=== PATIENT | female | born 1950 | race Caucasian/White ===

== ENCOUNTER 2019-02-05 00:15 | Inpatient (IN) | payer OTHER, MEDICAID ==
[~2019-02-05] VITALS: Ht 165.1 cm; Wt 120.2 kg
[2019-02-05 00:15] VITALS: BP 151/51
[~2019-02-05 00:15] MED LIST: ACET-787 PO; ALBU-136 IH; ASPI81CT33 PO; FENO160T7 PO; FLUT1DSK2 IH; FURO-572 PO; GLIP10TA12 PO; SIMV10TA1 PO
--- NOTE | 2019-02-05 00:45 | NUR ---
BIBA C/O ABD PAIN X2 WEEKS. 10/10 SHARP PAIN DOES NOT RADIATE. DENIES N/V/D. DENIES FEVER/COUGH. PT IS LEGALLY BLIND. PT HAS FRACTURE TO RT FOOT S/P FALL SHE WAS SEEN FOR. RR EVEN UNLABORED. ABD SOFT ROUND NONTENDER. VSS. PT CALM RESTING IN BED. NO FURTHER COMPLAINTS AT THIS TIME. MEDHX: DM, RENAL FAILURE, PACEMAKER ALLERGIES: DENIES
[2019-02-05 00:53] LABS: HEMATOCRIT 27.3 % (36-48); HEMOGLOBIN 9.1 g/dL (12.0-16.0); MEAN CORPUSCULAR HEMOGLOBIN 32 pg (27-31); MEAN CORPUSCULAR HGB CONC 33 g/dL (33-37); MEAN CORPUSCULAR VOLUME 95.9 fL (80-94); PLATELET COUNT (AUTO) 326 K/uL (140-450); RED BLOOD CELL COUNT(AUTO) 2.85 MIL/uL (4.20-5.40); RED CELL DISTRIBUTION WIDTH 13.6 % (11.6-13.7)
[2019-02-05 01:06] LABS: ALBUMIN 2.6 g/dL (3.4-5.0); ANION GAP 12.9 (8-16); CARBON DIOXIDE 33.1 mmol/L (21-32); TOTAL BILIRUBIN 0.6 mg/dL (0.0-1.0)
[2019-02-05 01:10] LABS: WHITE BLOOD COUNT (AUTO) 22.1 K/uL (4.8-10.8)
[2019-02-05 01:11] LABS: EOSINOPHILS % (MANUAL) 1 % (0-4); LYMPHOCYTES % (MANUAL) 13 % (20-46); MONOCYTES % (MANUAL) 0 % (5-12)
[2019-02-05 01:14] LABS: CREATININE 6.1 mg/dL (0.6-1.3)
--- NOTE | 2019-02-05 01:30 | NUR ---
PT RESTING IN BED WITH EYES CLOSED. VSS AT THIS TIME.
[2019-02-05] MEDS ORDERED: MORPHINE SULFATE 4 MG/ML SYR IVP ONE ×2 (01:45→03:30)
--- NOTE | 2019-02-05 02:20 | NUR ---
PT IN BED, STATES PAIN WAS RELIEVED AFTER PAIN MEDICATIONS GIVEN. PT RESTING WITH EYES CLOSED. VSS AT THIS TIME.
--- NOTE | 2019-02-05 02:35 | NUR ---
RECEIVED REPORT FROM MARYCARMEN CALLES. TRANSFER OF CARE AT THIS TIME.
--- NOTE | 2019-02-05 02:48 | NUR ---
PT TAKEN TO CT VIA [facility].
--- NOTE | 2019-02-05 03:00 | NUR ---
PT RETURNED FROM CT VIA [facility].
--- NOTE | 2019-02-05 03:15 | NUR ---
PT IS GROANING, GRIMACING IN BED C/O ABD PAIN. DR MCKEON MADE AWARE.
--- NOTE | 2019-02-05 04:40 | NUR ---
PT RESTING COMFORTABLY IN BED WITH VSS. PT REPORTS NO PAIN AT THIS TIME. SKIN PINK, WARM, DRY. BREATHING EVEN, UNLABORED.
--- NOTE | 2019-02-05 06:00 | NUR ---
PT HAD LARGE LOOSE BROWN BM. PERINEAL CARE AND HYGIENE PROVIDED.
--- NOTE | 2019-02-05 06:10 | NUR ---
# 16 FR straight catheter utilizing sterile technique. Immediate return of 150 ml dark yellow, turbid, foul smelling urine noted. Urine sample collected and sent to lab. Pt tolerated procedure well.
[2019-02-05] MEDS ORDERED: cefTRIAXone 1,000 MG VIAL ONE (06:16)
[2019-02-05 06:48] LABS: APPEARANCE,URINE CLOUDY (CLEAR); BLOOD, URINE 3+ (NEGATIVE); COLOR,URINE YELLOW (YELLOW); UGLUCOSE NEGATIVE (NEGATIVE)
[2019-02-05 06:49] LABS: BILIRUBIN,URINE NEGATIVE (NEGATIVE); LEUKOCYTE ESTERASE ,URINE 3+ (NEGATIVE); NITRITE, URINE POSITIVE (NEGATIVE)
[2019-02-05 06:50] LABS: RBC,URINE 11-20 (MOD) /HPF (0-5); WBC,URINE >25 (MANY) /HPF (0-5)
--- NOTE | 2019-02-05 07:02 | NUR ---
PT RESTING COMFORTABLY IN BED WITH VSS. PT REPORTS NO PAIN AT THIS TIME. SKIN PINK, WARM, DRY. BREATHING EVEN, UNLABORED.
--- NOTE | 2019-02-05 07:15 | NUR ---
ASSUMED CARE OF PT FROM MARYCARMEN SIBLEY.
--- NOTE | 2019-02-05 07:15 | NUR ---
REPORT GIVEN TO MARYCARMEN SALDANA. TRANSFER OF CARE AT THIS TIME.
--- NOTE | 2019-02-05 07:20 | NUR ---
Patient will be admitted to care of DR MORALES. Admited to MED/SURG. Will go to room 108. Belongings list completed. Report to MARYCARMEN FAGAN.
--- NOTE | 2019-02-05 07:30 | NUR ---
RECEIVED REPORT FROM EMERGENCY ROOM NURSE FOR CONTINUITY OF CARE. PT IN STABLE CONDITION. RESPIRATIONS EVEN AND UNLABORED. IV INTACT AND PATENT. SAFETY MEASURES IN PLACE. BED IN LOW POSITION. CALL LIGHT AT BEDSIDE. WILL CONTINUE TO MONITOR.
[2019-02-05 08:00] VITALS: BP 150/44
--- NOTE | 2019-02-05 08:28 | NUR ---
REPOSITIONED AND CHANGED PT AFTER BOWEL MOVEMENT. PT IN STABLE CONDITION. BED IN LOW POSITION. BED ALARM ON. CALL LIGHT AT BEDSIDE.
--- NOTE | 2019-02-05 08:30 | NUR ---
PATIENT HAS BEEN SCREENED AND CATEGORIZED HIGH NUTRITION RISK. PATIENT WILL BE SEEN WITHIN 1-2 DAYS OF ADMISSION. 02/05/19-02/06/[address]
[2019-02-05] MEDS ORDERED: ALBUTEROL 0.083% 2.5 MG/3 ML NEBU INH PRN (09:00)
[2019-02-05] MEDS ORDERED: ONDANSETRON 4 MG/2 ML VIAL IVP PRN (09:00)
[2019-02-05] MEDS ORDERED: LORazepam 2 MG/ML VIAL IVP PRN (09:00)
[2019-02-05] MEDS ORDERED: ACETAMINOPHEN 325 MG TAB PO PRN (09:00)
[2019-02-05] MEDS ORDERED: HYDROcodone/APAP 5/325 MG 1 TAB TAB PO PRN (09:00)
[2019-02-05] MEDS ORDERED: NON-FORMULARY ITEM (Fluticasone/Salmeterol* (Advair 250-50 Diskus*) 1 DSK) IH SCH (09:00)
[2019-02-05] MEDS ORDERED: ECOTRIN 81 MG TABEC PO SCH (09:00)
[2019-02-05] MEDS: FENOFIBRATE 48 MG TAB PO SCH (10:28)
[2019-02-05] MEDS: HYDROcodone/APAP 10/325 MG 1 TAB TAB PO SCH (10:29)
[2019-02-05] MEDS: glipiZIDE 10 MG TAB PO SCH ×2 (10:29→21:31)
[2019-02-05] MEDS: NACL 0.9% 1,000 ML IV SCH ×2 (10:37→18:58)
--- NOTE | 2019-02-05 10:57 | NUR ---
ULTRASOUND AT BEDSIDE AT THIS TIME. PT IN STABLE CONDITION.
--- NOTE | 2019-02-05 12:13 | NUR ---
PT LYING IN BED SLEEP AT THIS TIME. BED IN LOW POSITION. CALL LIGHT AT BEDSIDE. BED ALARM ON. WILL CONTINUE TO MONITOR.
--- NOTE | 2019-02-05 14:25 | NUR ---
PT LYING IN BED FAMILY AT BEDSIDE. BED IN LOW POSITION. CALL LIGHT AT BEDSIDE. BED ALARM ON. WILL CONTINUE TO MONITOR. Addendum: 02/05/19 at 2024 by Candida Cantrell RN BARBER (SON)
--- NOTE | 2019-02-05 16:30 | NUR ---
ANGELIKA ADEN WOUND ASSESSMENT, INFORMED DR. ANDREW CHERY WOUND CARE NURSE SUGGEST PODIATRY FOR RIGHT 2ND TOE, DR. MORALES VERBALIZED UNDERSTANDING. INFORMED DR. MORALES PT HAS DIALYSIS ON SUN, SUN, SUN, DR. MORALES VERBALIZED CALL NEPHRO.
--- NOTE | 2019-02-05 16:52 | NUR ---
CALLED EMILIANO MARSHALL FOR DIALYSIS ORDER. EXPLAINED PT NEEDS DIALYSIS TODAY AND TO CALL KETAN AND HAVE KETAN CALL DR. CARTER FOR VERBAL ORDERS. SPOKE TO KETAN WHO VERBALIZED UNDERSTANDING OF PT NEED FOR DIALYSIS.
--- NOTE | 2019-02-05 17:13 | NUR ---
PER PRIMARY RN REQUEST TO CHECK PT. RLE. PLR WITH ORTHO CAST IN PLACE, 2ND DIGIT TOE WITH BLACK ESCHAR. RECOMMEND RN TO REQUEST TELEPHONE ORDER CLERK TO FOLLOW UP.
[2019-02-05] MEDS ORDERED: DEXTROSE 50% 50 ML SYR IVP ONE (17:23)
--- NOTE | 2019-02-05 17:30 | NUR ---
ANGELIKA ADEN DEXTROSE 50PFS ONCE, SLIDING SCALE. BLOOD SUGAR MONITORING.
--- NOTE | 2019-02-05 17:45 | NUR ---
BLOOD SUGAR 113. PT IN STABLE CONDITION.
[2019-02-05 18:00] VITALS: BP 149/64
[2019-02-05] MEDS ORDERED: DEXTROSE 50% 50 ML SYR IVP SCH (18:00)
--- NOTE | 2019-02-05 19:10 | NUR ---
GAVE REPORT TO HEAT TREAT INSPECTOR NURSE FOR CONTINUITY OF CARE. PT IN STABLE CONDITION.
--- NOTE | 2019-02-05 19:11 | NUR ---
RECD. RESTING IN BED, EATING HER DINNER. ALERT/OX4. LEGALLY BLIND. RESPIRATION EVEN AND UNLABORED. 0N 02 AT 2 LITERS VIA N/C. IV OF NS AT 100 ML/HR INFUSING LEFT HAND G24. AV SHUNT AT THE RIGHT UPPER ARM. WITH BRUIT AND THRILL. RIGHT FOOT WITH CAST, NOTED DIABETIC ULCER AT THE MIDDLE TOE AND SMALLEST TOE, OPEN TO AIR, DRY AND INTACT. WITH + MOVEMENTS, CAPILLARY REFILL LESS THREE SECONDS, + SENSATION. AWARE OF PLAN DIALYSIS TONIGHT. PLAN OF CARE FOR THE SHIFT DISCUSSED. VERBALIZED UNDERSTANDING. DENIES PAIN 0/10.
--- NOTE | 2019-02-05 19:12 | NUR ---
Patient's Plan of Care was discussed and reviewed with SLOTTER OPERATOR HELPER: TANNER. SAFTEY MEASURES ARE IN PLACE. WILL CONTINUE TO MONITOR.
[2019-02-05] MEDS ORDERED: INSULIN LISPRO SLIDING SCALE 100 UNITS/ML VIAL SUBQ PRN (19:40)
--- NOTE | 2019-02-05 20:00 | NUR ---
DIALYSIS ON GOING. DIALYSIS NURSE ACEVES AT THE BEDSIDE.
[2019-02-05] MEDS ORDERED: FUROSEMIDE 20 MG TAB PO SCH (21:00)
--- NOTE | 2019-02-05 21:00 | NUR ---
MAY OF NUCLEAR MED CALLED, MAKE PATIENT NPO PAST MIDNIGHT, NO OPIOIDS AFTER 5:00 AM. HIDA SCAN WILL BE DONE 0900 TOMORROW.
[2019-02-05] MEDS: SIMVASTATIN 10 MG TAB PO SCH (21:31)
[2019-02-05] MEDS: LACTULOSE 20 GM/30 ML UDC PO SCH (21:31)
[2019-02-05] MEDS: BLOOD GLUCOSE MONITORING 1 DEV DEV FS SCH (21:37)
--- NOTE | 2019-02-05 21:37 | NUR ---
DUE PO MEDICATIONS GIVEN.
--- NOTE | 2019-02-05 23:00 | NUR ---
DIALYSIS FINISHED, PER DIALYSIS NURSE ACEVES, 2 LITERS OF FLUIDS TAKEN OUT.
[2019-02-06 02:46] VITALS: BP 151/41
--- NOTE | 2019-02-06 03:00 | NUR ---
IV INFILTRATED, WILL INSERT NEW IV LINE.
--- NOTE | 2019-02-06 03:30 | NUR ---
ARMAND RN STARTED TO PUT NEW IV LINE, UNABLE TO INSERT, PATIENT IS HARDSTICK.
--- NOTE | 2019-02-06 04:00 | NUR ---
GEORGINA CONROY TRIED TO PUT IV LINE, BUT PATIENT'S VEINS ARE VERY SMALL, BLOWS UP.
[2019-02-06] MEDS: NACL 0.9% 1,000 ML IV SCH (04:58)
[2019-02-06] MEDS: PIPERACILLIN/TAZOBACTAM 2.25 GM in DEXTROSE 5% 50 ML IV SCH ×3 (05:00→21:20)
--- NOTE | 2019-02-06 05:00 | NUR ---
PAGED DR. MORALES TO INFORM NEW IV ATTEMPTED SEVERAL TIMES BUT PATIENT IS HARDSTICK AND ANTIBIOTIC FOR THE MORNING CANNOT BE GIVEN.
--- NOTE | 2019-02-06 06:00 | NUR ---
DR. MORALES ORDERED PICC LINE INSERTION. INFORMED CHARGE HISTOTECHNOLOGIST,
[2019-02-06] MEDS: BLOOD GLUCOSE MONITORING 1 DEV DEV FS SCH ×4 (06:35→21:26)
--- NOTE | 2019-02-06 07:20 | NUR ---
ENDORSED TO AM SHIFT NURSE FOR CONTINUITY OF CARE.
--- NOTE | 2019-02-06 07:21 | NUR ---
RECEIVED REPORT FROM BROADCAST FIELD SUPERVISOR NURSE. PT WAS LYING IN BED AND RESPONSIVE TO VERBAL STIMULI. PT REPOSITIONED CALL LIGHT WITHIN REACH.
[2019-02-06 08:00] VITALS: BP 156/47
[2019-02-06 08:20] LABS: BASOPHILS % (AUTO) 0.2 % (0.0-2.0); EOSINOPHILS # (AUTO) 0.5 K/uL (0-0.4); HEMATOCRIT 26.9 % (36-48); HEMOGLOBIN 8.7 g/dL (12.0-16.0); LYMPHOCYTES % (AUTO) 5.5 % (20.5-51.1); MEAN CORPUSCULAR HEMOGLOBIN 31 pg (27-31); MEAN CORPUSCULAR HGB CONC 32 g/dL (33-37); MEAN CORPUSCULAR VOLUME 96.1 fL (80-94); MONOCYTES % (AUTO) 5.4 % (1.7-9.3); NEUTROPHILS # (AUTO) 15.6 K/uL (1.8-7.7); NEUTROPHILS % (AUTO) 85.9 % (42.2-75.2); PLATELET COUNT (AUTO) 323 K/uL (140-450); RED CELL DISTRIBUTION WIDTH 13.8 % (11.6-13.7); WHITE BLOOD COUNT (AUTO) 18.1 K/uL (4.8-10.8)
[2019-02-06 08:48] LABS: ANION GAP 12.9 (8-16); CARBON DIOXIDE 31.6 mmol/L (21-32); POTASSIUM 3.5 mmol/L (3.5-5.1)
[2019-02-06 08:52] LABS: CREATININE 4.8 mg/dL (0.6-1.3)
[2019-02-06 09:09] LABS: MAGNESIUM 2.3 mg/dL (1.8-2.4); PHOSPHORUS 2.2 mg/dL (2.5-4.9)
--- NOTE | 2019-02-06 10:00 | NUR ---
Pt left via hospital bed for NM hida scan, accompanied by NM nurse. Pt shows no signs of distress.
[2019-02-06] MEDS: MORPHINE SULFATE 2 MG/ML SYR IVP PRN ×2 (11:07→21:19)
--- NOTE | 2019-02-06 11:20 | NUR ---
Pt's DPOA & son Andrez came in to see pt. Informed him that pt is still in NM Hida scan & will take at least 30min-1hr to complete. Copy of pt's living will & General power of corporate associate attorney place in chart. Dr. Norwood called on the phone & spoke with Andrez, confirmed DNR code status. Order noted & carried out.
--- NOTE | 2019-02-06 11:24 | NUR ---
Morphine administered IVP for hida scan f/u. Pt also with c/o 7/10 back pain, but agree to complete hida scan.
[2019-02-06] MEDS: HYDROcodone/APAP 10/325 MG 1 TAB TAB PO SCH (12:17)
[2019-02-06] MEDS: LACTULOSE 20 GM/30 ML UDC PO SCH ×2 (12:17→21:20)
[2019-02-06] MEDS: SENNA 8.6 MG TAB PO SCH ×3 (12:18→16:51)
[2019-02-06] MEDS: glipiZIDE 10 MG TAB PO SCH ×2 (12:18→21:20)
[2019-02-06] MEDS: FENOFIBRATE 48 MG TAB PO SCH (12:18)
--- NOTE | 2019-02-06 12:50 | NUR ---
Pt came back from [place], no signs of distress. Left forearm IV intact & patent. Bed alarm on, Call light within reach. Son not at bedside.
--- NOTE | 2019-02-06 14:06 | NUR ---
PT CAME BACK FROM HIDA SCAN. PT WAS OFFERED LUNCH. DID NOT WANT TO EAT. NO COMPAINTS OF PAIN OR DISTRESS NOTED. REPOSITIONED PT RIGHT SIDE. COMFORT MEASURES IN PLACE. CALL LIGHT WITHIN REACH.
--- NOTE | 2019-02-06 15:22 | NUR ---
02/06/19 RD INITIAL ASSESSMENT COMPLETED PLEASE REFER TO NUTRITION ASSESSMENT UNDER CARE ACTIVITY FOR ESTIMATED NUTRITIONAL NEEDS. 1. CONTINUE CARDIAC AND CCHO 60 GM DIET TOLERATED 2. PROVIDE HEALTH SHAKE BID 3. RD TO FOLLOW-UP 3-5 DAYS, MODERATE RISK LOU OJEDA, RD
[2019-02-06 16:00] VITALS: BP 139/49
--- NOTE | 2019-02-06 16:33 | NUR ---
Fingerstick glucose = 62. Pt aaox3, able to follow commands, able to swallow independently. 2 packs of 120ml apple juice given po. Will recheck glucose.
[2019-02-06] MEDS: DEXTROSE 50% 50 ML SYR IVP PRN (17:40)
--- NOTE | 2019-02-06 17:46 | NUR ---
Pt's blood glucose level was 58. Dextrose 50% given IV. Will recheck in 30 mins. Pt is comfortable and resting. Responds to verbal stimuli. No diaphoresis or tremors noted.
--- NOTE | 2019-02-06 18:34 | NUR ---
Re-assessed pt blood glucose level to 136. Pt is comfortable and lying in bed.
--- NOTE | 2019-02-06 19:35 | NUR ---
Report given to pm nurse. Pt resting in bed, no signs of distress. Bed alarm on. Call light within reach.
[2019-02-06] MEDS: SIMVASTATIN 10 MG TAB PO SCH (21:20)
--- NOTE | 2019-02-06 22:48 | NUR ---
PATIENT BLOODSUGAR UP TO 72 WAS 62 WAS CHECKED [id number] BLOODSUGAR UP TO 74
[2019-02-07] MEDS: PIPERACILLIN/TAZOBACTAM 2.25 GM in DEXTROSE 5% 50 ML IV SCH ×3 (05:16→20:19)
[2019-02-07 05:29] VITALS: BP 124/38
--- NOTE | 2019-02-07 06:30 | NUR ---
BLOODSUGAR THIS A.M 37 GIVEN D50 REPEAT BLOODSUGAR IN 30MIN RESULTS 110
[2019-02-07] MEDS: BLOOD GLUCOSE MONITORING 1 DEV DEV FS SCH ×4 (06:39→21:41)
[2019-02-07] MEDS: ALBUTEROL 0.083% 2.5 MG/3 ML NEBU INH SCH ×3 (06:57→19:43)
[2019-02-07] MEDS: BUDESONIDE 0.5 MG/2 ML NEBU INH SCH ×2 (06:57→19:43)
--- NOTE | 2019-02-07 07:54 | NUR ---
Received report from night patrol inspector nurse. Pt is lying in bed. No signs of distress noted. No complains of pain. Call light within reach.
[2019-02-07 08:03] LABS: BASOPHILS # (AUTO) 0.1 K/uL (0.00-0.22); BASOPHILS % (AUTO) 0.7 % (0.0-2.0); EOSINOPHILS # (AUTO) 0.9 K/uL (0-0.4); EOSINOPHILS % (AUTO) 4.9 % (0.0-4.0); HEMATOCRIT 25.1 % (36-48); HEMOGLOBIN 8.3 g/dL (12.0-16.0); LYMPHOCYTES # (AUTO) 1.1 K/uL (2.5-16.5); LYMPHOCYTES % (AUTO) 5.8 % (20.5-51.1); MEAN CORPUSCULAR HEMOGLOBIN 32 pg (27-31); MEAN CORPUSCULAR HGB CONC 33 g/dL (33-37); MEAN CORPUSCULAR VOLUME 97.9 fL (80-94); MONOCYTES # (AUTO) 1.1 K/uL (0.8-1.0); MONOCYTES % (AUTO) 6.3 % (1.7-9.3); NEUTROPHILS # (AUTO) 14.8 K/uL (1.8-7.7); NEUTROPHILS % (AUTO) 82.3 % (42.2-75.2); PLATELET COUNT (AUTO) 307 K/uL (140-450); RED BLOOD CELL COUNT(AUTO) 2.56 MIL/uL (4.20-5.40); RED CELL DISTRIBUTION WIDTH 13.5 % (11.6-13.7)
[2019-02-07] MEDS: HYDROcodone/APAP 10/325 MG 1 TAB TAB PO SCH (09:00)
[2019-02-07] MEDS: LACTULOSE 20 GM/30 ML UDC PO SCH ×2 (09:00→21:00)
[2019-02-07] MEDS: SENNA 8.6 MG TAB PO SCH ×3 (09:00→17:00)
[2019-02-07] MEDS: FENOFIBRATE 48 MG TAB PO SCH (09:00)
[2019-02-07] MEDS: glipiZIDE 10 MG TAB PO SCH (09:00)
[2019-02-07] MEDS ORDERED: DEXTROSE ORAL 15 GM TUBE PO PRN (10:00)
[2019-02-07] MEDS ORDERED: DEXTROSE ORAL 15 GM TUBE PO ONE (10:03)
[2019-02-07] MEDS: DEXTROSE 50% 50 ML SYR IVP PRN (10:28)
--- NOTE | 2019-02-07 10:50 | NUR ---
Pt was drowsy. Checked blood glucose. Blood glucose was 60 at 1020. Pt left forearm IV infiltrated. Attempted to administer Glutose gel po, but pt unable to swallow at this time. 20G IV started to left wrist. Gave dextrose 50% IVP. Rechecked blood glucose 30 mins later at 1050. Blood glucose levels at 133. Pt remains drowsy, responsive to auditory & tactile stimuli. Dialysis nurse arrived at bedside to start HD. Will cont to monitor.
[2019-02-07 11:17] LABS: ALBUMIN 2.2 g/dL (3.4-5.0); ANION GAP 12.7 (8-16); CARBON DIOXIDE 30.8 mmol/L (21-32); MAGNESIUM 2.5 mg/dL (1.8-2.4); POTASSIUM 3.5 mmol/L (3.5-5.1); TOTAL BILIRUBIN 0.5 mg/dL (0.0-1.0)
[2019-02-07 11:21] LABS: CREATININE 6.3 mg/dL (0.6-1.3)
[2019-02-07 11:50] LABS: PHOSPHORUS 2.8 mg/dL (2.5-4.9)
[2019-02-07] MEDS: MORPHINE SULFATE 2 MG/ML SYR IVP PRN (12:44)
--- NOTE | 2019-02-07 12:45 | NUR ---
Dr. Norwood notified of pt ALOC & episodes of hypoglycemia. Per dr, will order neuro consult & lab draw.
--- NOTE | 2019-02-07 15:06 | NUR ---
Per Zoey dialysis nurse, HD not completed d/t clogged AV shunt. Able to take out 1650ml, but unable to return blood. Per Zoey, Dr Townsend is notified with no new orders.
[2019-02-07 16:00] VITALS: BP 106/36
--- NOTE | 2019-02-07 16:29 | NUR ---
SCREEN FOR LOW DEVI SCALE AT RISK, CONTINUE TO FOLLOW PRESSURE ULCER PREVENTION INTERVENTIONS. PT. ADMITTED WITH RIGHT LOWER LEG CAST IN PLACE AND MULTIPLE SCABS TO LEFT FOOT AND LEFT HALLUX, SCAB WITH LARGEST TO RIGHT 2ND DIGIT TOE 2X1CM DRY BROWN SCAB AND RIGHT 5TH DIGIT TOE DARK BROWN DISCOLORATION 0.5X0.5CM, SKIN INTACT. PER SON,THESE SCABS WERE CAUSE BY FRICTIONS FROM CRAWLING ON THE FLOOR FROM FIRST FALL. PER PRIMARY RN ALL OTHER SKIN AREAS ARE CLEAN AND INTACT. PT. IS ASLEEP AT THIS TIME, EXPLAIN TO SON THE TREATMENT PLAN, HE VERBALIZES UNDERSTANDING. ALL QUESTIONS ANSWERED, POC DISCUSSED WITH PRIMARY RN. RECOMMENDATIONS: -EHS TEACHER CONSULT -PAINT SCABS TO RIGHT AND LEFT FOOT/TOES WITH BETADINE SOLUTION BID AND LEAVE IT OPEN TO AIR. -HEEL RAISER TO BILATERAL FEET -TURN AND REPOSITION PATIENT Q 2H -ASSESS AND MONITOR SKIN CONDITION DURING POSITION CHANGE -OFFLOAD BILATERAL HEELS BY PLACING PILLOWS UNDER CALVES AT ALL TIMES, UNLESS OTHERWISE CONTRAINDICATED -PRESSURE REDISTRIBUTION BY PLACING PILLOWS AND OFFLOADING SACRALCOCCYX, RIGHT LE -KEEP SKIN CLEAN AND DRY AT ALL TIMES.
--- NOTE | 2019-02-07 16:30 | NUR ---
Pt BP 106/36, R 32, O2sat 85% on O2 @ 2Lpm via n/c. Simple mask applied & O2 flow increased to 9Lpm. O2sat improved to 90%, RR 22 even & nonlabored. RT Chaparro notified & came in to see pt. Eric Maguire (DPOA) at bedside & states pt is to remain DNR, ok for IV meds. Dr Norwood notified of vitals & pt/family wishes. New order received. 1L NS bolus initiated. Pulmo consult order noted.
[2019-02-07] MEDS ORDERED: NACL 0.9% 1,000 ML IV SCH (16:45)
[2019-02-07 18:00] VITALS: BP 99/47
--- NOTE | 2019-02-07 18:20 | NUR ---
NS 1L bolus completed. BP 99/47, HR 80, SaO2 97% on O2 @ 6Lpm via simple mask, RR even & nonlabored. Dr. Rajput at bedside notified of vitals. Will start D5NS @ 40ml/hr per dr order. Pt remains ALOC, responsive to touch. Left wrist IV intact & asymptomatic.
[2019-02-07] MEDS: DEXT 5% /NACL 0.9% 1,000 ML IV SCH (18:48)
--- NOTE | 2019-02-07 19:25 | NUR ---
Report given to pm nurse Ishaan. Pt asleep in bed, respirations even & nonlabored.
--- NOTE | 2019-02-07 19:30 | NUR ---
RECEIVED PT FROM AM NURSE. PT AT BED EYES CLOSED BREATHING REGULARLY ON 02 FACE MASK AT 5L/MIN, 85%, PERRL 3MM, LETHARGIC, DOES NOT FOLLOW COMMANDS, HEART RATE REGULAR, S1S2 PRESENT, CAP REFILL <3S, PULSES 2+ BUE, BLE, ABDOMEN, SOFT, ROUND, NONDISTENDED, NONTENDER, BLADDER SOFT, ROUND, NONDISTENDED, NONTENDER, PT HAS GENERALIZED WEAKNESS. PT HAS LEFT WRIST 22 GAUGE, D5 NS RUNNING AT 40 ML/HR, RIGHT UPPER ARM AV SHUNT, SKIN NON INTACT, PT HAS RIGHT SECOND TOE BLACK SCAB, LEFT BIG TOE SCAB, RIGHT LOWER LEG CAST. SKIN, WARM, DRY. HOB 30 DEGREES, SIDE RAILS UP X2, BED AT LOWEST POSITION.
--- NOTE | 2019-02-07 20:07 | NUR ---
SWITCHED PT TO OXYMIZER TO 5L FROM MASK AT 6L 02. PT TOLERATING OXYMIZER WELL WITH SATURATION BETWEEN 97-100%. NO DISTRESS NOTED. WILL CONTINUE TO MONITOR THE PT
[2019-02-07] MEDS: SIMVASTATIN 10 MG TAB PO SCH (21:00)
--- NOTE | 2019-02-07 21:30 | NUR ---
MEDICATIONS GIVEN. DRESSINGS CHANGED. PT TOLERATED PROCEDURE WELL.
[2019-02-08] VITALS: BP 133/69
--- NOTE | 2019-02-08 00:15 | NUR ---
AM CARE PROVIDED, CHANGED LINEN. PT TOLERATED PROCEDURE WELL. WILL CONTINUE TO MONITOR.
[2019-02-08] MEDS: ALBUTEROL 0.083% 2.5 MG/3 ML NEBU INH SCH ×4 (01:40→19:32)
[2019-02-08] MEDS: HYDRAGUARD CREAM TP SCH ×2 (01:47→13:59)
--- NOTE | 2019-02-08 03:05 | NUR ---
PT AT BED EYES CLOSED. BREATHING REGULARLY ON OXYMYZER, HOB 30 DEGREES, SIDERAILS UP X2, BED AT LOWEST POSITION, WILL CONTINUE TO MONITOR.
[2019-02-08] MEDS: PIPERACILLIN/TAZOBACTAM 2.25 GM in DEXTROSE 5% 50 ML IV SCH ×3 (04:53→21:26)
--- NOTE | 2019-02-08 06:30 | NUR ---
PT AT BED EYES CLOSED, BREATHING REGULARLY. HOB 30 DEGREES, SIDE RAILS UP X2, BED AT LOWEST POSITION.
[2019-02-08] MEDS: BLOOD GLUCOSE MONITORING 1 DEV DEV FS SCH ×4 (06:51→21:25)
[2019-02-08] MEDS: BUDESONIDE 0.5 MG/2 ML NEBU INH SCH ×2 (07:23→19:32)
--- NOTE | 2019-02-08 07:30 | NUR ---
PT AT BED EYES CLOSED, BREATHING REGULARLY. HOB 30 DEGREES, SIDE RAILS UP X2, BED AT LOWEST POSITION.
--- NOTE | 2019-02-08 07:31 | NUR ---
RECEIVED PT FROM METALLURGICAL OR MATERIALS TECHNICIAN NURSE. PT AT BED EYES CLOSED BREATHING REGULARLY ON 02 OXIMIZER AT 5L/MIN, PATIENT KEEPS TAKING OXIMIZER OFF. LETHARGIC, DOES NOT FOLLOW COMMANDS, HEART RATE REGULAR, S1S2 PRESENT, CAP REFILL <3S, ABDOMEN, SOFT, ROUND, NONDISTENDED, NONTENDER, BLADDER SOFT, ROUND, NONDISTENDED, NONTENDER, PT HAS GENERALIZED WEAKNESS. PT HAS LEFT WRIST 22G, D5 NS RUNNING AT 40 ML/HR, RIGHT UPPER ARM AV SHUNT, SKIN NON INTACT, PT HAS RIGHT SECOND TOE BLACK SCAB, LEFT BIG TOE SCAB, RIGHT LOWER LEG CAST. SKIN, WARM, DRY. HOB 30 DEGREES, SIDE RAILS UP X2, BED AT LOWEST POSITION. UPDATED BOARD. FLACC-0. SAFETY PRECAUTIONS IN PLACE, CALL LIGHT WITHIN REACH, WILL CONTINUE TO MONITOR PATIENT.
[2019-02-08 08:00] VITALS: BP 133/59
[2019-02-08] MEDS: LACTULOSE 20 GM/30 ML UDC PO SCH ×2 (09:40→21:00)
[2019-02-08] MEDS: HYDROcodone/APAP 10/325 MG 1 TAB TAB PO SCH (09:40)
--- NOTE | 2019-02-08 09:40 | NUR ---
ORDERED MEDICATION GIVEN. PATIENT ALOC, COULD NOT SWALLOW. INFORM Kishore RAIN WILL CONTINUE TO MONITOR PATIENT.
[2019-02-08] MEDS: SENNA 8.6 MG TAB PO SCH ×3 (09:41→17:00)
[2019-02-08] MEDS: FENOFIBRATE 48 MG TAB PO SCH (09:41)
[2019-02-08] MEDS ORDERED: MORPHINE SULFATE 2 MG/ML SYR IVP SCH (10:45)
[2019-02-08 11:38] LABS: HEMATOCRIT 24.4 % (36-48); HEMOGLOBIN 7.9 g/dL (12.0-16.0); MEAN CORPUSCULAR HEMOGLOBIN 31 pg (27-31); MEAN CORPUSCULAR HGB CONC 32 g/dL (33-37); MEAN CORPUSCULAR VOLUME 97.1 fL (80-94); PLATELET COUNT (AUTO) 358 K/uL (140-450); RED BLOOD CELL COUNT(AUTO) 2.52 MIL/uL (4.20-5.40); RED CELL DISTRIBUTION WIDTH 13.6 % (11.6-13.7)
--- NOTE | 2019-02-08 12:05 | NUR ---
ORDERED MEDICATION GIVEN. PATIENT TOLERATED IT. FAMILY AT BEDSIDE. WILL CONTINUE TO MONITOR PATIENT.
[2019-02-08 12:09] LABS: ANION GAP 17.2 (8-16); CARBON DIOXIDE 27.7 mmol/L (21-32); POTASSIUM 3.9 mmol/L (3.5-5.1)
[2019-02-08 12:13] LABS: MAGNESIUM 2.4 mg/dL (1.8-2.4); PHOSPHORUS 3.1 mg/dL (2.5-4.9)
[2019-02-08 12:20] LABS: WHITE BLOOD COUNT (AUTO) 25.1 K/uL (4.8-10.8)
[2019-02-08 12:27] LABS: CREATININE 6.5 mg/dL (0.6-1.3)
[2019-02-08 12:35] LABS: BASOPHILS % (MANUAL) 0 % (0-2); LYMPHOCYTES % (MANUAL) 5 % (20-46); METAMYELOCYTES % 3 % (0-0); MONOCYTES % (MANUAL) 3 % (5-12); MYELOCYTES % 1 % (0-0)
--- NOTE | 2019-02-08 12:35 | NUR ---
PATIENT RESTING IN BED, NO C/O AT THIS TIME. PATIENT GETTING BREATHING TREATMENT. WILL CONTINUE TO MONITOR PATIENT.
[2019-02-08 12:36] LABS: EOSINOPHILS % (MANUAL) 2 % (0-4)
--- NOTE | 2019-02-08 13:03 | NUR ---
PATIENT WHEELED OFF FLOOR TO RADIOLOGY FOR CT. WILL WAIT FOR RESULTS.
--- NOTE | 2019-02-08 13:48 | NUR ---
PAGED GILA MCKEON TO UPDATE ABOUT PATIENT'S CREATININE LEVEL. DR. CARTER LAWN CARETAKER. WILL WAIT FOR THE DOCTOR TO CALL BACK.
[2019-02-08] MEDS: DRY DRESSING TP SCH (13:58)
--- NOTE | 2019-02-08 14:32 | NUR ---
PAGED Miguel RAIN TO PASS ON INFORMATION FROM DR. BULL. DR. MORALES CALLED BACK. CONSULT SHANNEN RAIN. ORDER NOTED AND WILL BE CARRIED OWN.
--- NOTE | 2019-02-08 15:14 | NUR ---
CALLED Darien RAIN ABOUT CONSULT. HE STATED HE WILL BE IN TO SEE THE PATIENT. RN VERBALIZED UNDERSTANDING. FAMILY AT BEDSIDE. FAMILY AWARE Darien RAIN WILL BE IN.
[2019-02-08 16:00] VITALS: BP 115/50
--- NOTE | 2019-02-08 18:35 | NUR ---
PATIENT'S SON SUNIL CALLED. UPDATED HIM ON PLAN OF CARE. DR. MORALES, Y IN TO SEE THE PATIENT. INFORMED HIM TO CALLED MANAGER COPY RN TO GET UPDATES. HE VERBALIZED UNDERSTANDING.
[2019-02-08] MEDS: DEXT 5% /NACL 0.9% 1,000 ML IV SCH ×2 (18:40→21:27)
--- NOTE | 2019-02-08 19:16 | NUR ---
REPORT RECEIVED FROM AM NURSE AT BEDSIDE. PT IN STABLE CONDITION. AAOX1-2. INTRODUCED SELF TO PT. BOARD UPDATED. NO COMPLAINTS OF PAIN. NO SOB. AFEBRILE. PT IS NOT AMBULATORY. ON MITTEN RESTRAINT OF THE RIGHT HAND. IV SITE L WRIST 22G RUNNING D5NS@40ML/HR PATENT AND INTACT. SKIN WARM, DRY, AND INTACT WITH NO OPEN WOUNDS. BED LOCKED IN LOW POSITION. CALL ALMANZAR WITHIN REACH. SAFETY PRECAUTION IN PLACE. ALL NEEDS MET AT THIS TIME.
--- NOTE | 2019-02-08 19:28 | NUR ---
REPORT GIVEN TO FACTORY CLERK NURSE AT BEDSIDE FOR CONTINUITY OF CARE. PATIENT RESTING WITH EYES CLOSED.
[2019-02-08] MEDS: SIMVASTATIN 10 MG TAB PO SCH (21:00)
--- NOTE | 2019-02-08 21:26 | NUR ---
ZOSYN HUNG AND RUNNING. PT TOLERATED WELL. BS 147. NO INSULIN COVERAGE NEEDED. LACTULOSE AND ZOCOR HELD DUE TO PATIENT BEING ALTERED.
[2019-02-08] MEDS ORDERED: VANCOMYCIN PER PHARMACY MC PRN (22:55)
--- NOTE | 2019-02-08 23:10 | NUR ---
PT LAYING IN BED GROANING. NO S/S OF DISTRESS NOTED. WILL CONTINUE TO MONITOR.
[2019-02-08] MEDS ORDERED: VANCOMYCIN 1,000 MG VIAL ONE (23:51)
[2019-02-08] MEDS: VANCOMYCIN 1,000 MG in DEXTROSE 5% 250 ML IV SCH (23:59)
--- NOTE | 2019-02-08 23:59 | NUR ---
YVAN [place] AND RUNNING. PT TOLERATING WELL.
[2019-02-09] VITALS: BP 139/34
[2019-02-09] MEDS: HYDRAGUARD CREAM TP SCH ×2 (00:07→14:00)
[2019-02-09] MEDS: ALBUTEROL 0.083% 2.5 MG/3 ML NEBU INH SCH ×4 (01:00→19:42)
[2019-02-09] MEDS ORDERED: VANCOMYCIN 1,000 MG VIAL ONE (02:36)
[2019-02-09] MEDS: VANCOMYCIN 1,000 MG in DEXTROSE 5% 250 ML IV SCH (02:44)
--- NOTE | 2019-02-09 02:44 | NUR ---
VANCO BAG 2 OF 2 HUNG. PT TOLERATING WELL.
--- NOTE | 2019-02-09 03:00 | NUR ---
PT PULLED OUT IV. 2 ATTEMPTS TAKEN BY MYSELF AND CHARGE NURSE. UNABLE TO GET IV ACCESS. ED WAS CALLED BUT SAID THEY WERE BUSY AND UNABLE TO COME PUT IN AN IV. WILL CALL MD FOR POSSIBLE PICC INSERTION.
--- NOTE | 2019-02-09 04:00 | NUR ---
UNABLE TO COMPLETE VANCO DUE TO NO IV ACCESS. ZOSYN IS NON ADMINISTERED DUE TO NO IV ACCESS.
[2019-02-09] MEDS: PIPERACILLIN/TAZOBACTAM 2.25 GM in DEXTROSE 5% 50 ML IV SCH ×3 (05:00→20:39)
--- NOTE | 2019-02-09 05:30 | NUR ---
PT MOANING AND GROANING IN BED. NO S/S OF DISTRESS NOTED. WILL CONTINUE TO MONITOR.
[2019-02-09] MEDS: BLOOD GLUCOSE MONITORING 1 DEV DEV FS SCH ×4 (06:30→20:39)
--- NOTE | 2019-02-09 06:30 | NUR ---
BS 124. NO INSULIN COVERAGE NEEDED.
[2019-02-09] MEDS: BUDESONIDE 0.5 MG/2 ML NEBU INH SCH ×2 (06:45→19:42)
--- NOTE | 2019-02-09 07:35 | NUR ---
RECEIVED BEDSIDE REPORT FROM PM RN PT APPEARS STABLE AND IN NO APPARENT DISTRESS. PT HAS RIGHT HAND MITTEN ON. PT HAS NO IV ACCESS AT THE TIME. PM RN STATED THAT WE SHOULD ASK FOR PICC LINE.
[2019-02-09 08:45] VITALS: BP 128/42
[2019-02-09] MEDS: LACTULOSE 20 GM/30 ML UDC PO SCH ×2 (09:00→20:51)
[2019-02-09] MEDS: FENOFIBRATE 48 MG TAB PO SCH (09:00)
[2019-02-09] MEDS: HYDROcodone/APAP 10/325 MG 1 TAB TAB PO SCH (09:00)
[2019-02-09] MEDS: SENNA 8.6 MG TAB PO SCH ×3 (09:00→17:00)
--- NOTE | 2019-02-09 09:29 | NUR ---
HELD PT MORNING MEDICATIONS PT IS ALTERED MENTAL STATUS, PT HAS NOT EATEN FOOD WITHIN THE LAST 24 HOURS. WANT TO HOLD MEDICATIONS UNTIL SPEAKING WITH DR. MORALES ABOUT POSSIBLY ORDERING A SWALLOW EVALUATION
--- NOTE | 2019-02-09 11:42 | NUR ---
PAGED DR MORALES AT [phone]
[2019-02-09 12:12] LABS: HEMATOCRIT 25.7 % (36-48); HEMOGLOBIN 8.4 g/dL (12.0-16.0); MEAN CORPUSCULAR HEMOGLOBIN 32 pg (27-31); MEAN CORPUSCULAR HGB CONC 33 g/dL (33-37); MEAN CORPUSCULAR VOLUME 96.2 fL (80-94); PLATELET COUNT (AUTO) 372 K/uL (140-450); RED BLOOD CELL COUNT(AUTO) 2.67 MIL/uL (4.20-5.40); RED CELL DISTRIBUTION WIDTH 13.9 % (11.6-13.7); WHITE BLOOD COUNT (AUTO) 24.4 K/uL (4.8-10.8)
[2019-02-09 12:34] LABS: MAGNESIUM 2.6 mg/dL (1.8-2.4); PHOSPHORUS 3.4 mg/dL (2.5-4.9)
[2019-02-09 13:10] LABS: BASOPHILS % (MANUAL) 0 % (0-2); EOSINOPHILS % (MANUAL) 3 % (0-4); LYMPHOCYTES % (MANUAL) 6 % (20-46); MONOCYTES % (MANUAL) 2 % (5-12)
[2019-02-09 13:22] LABS: CARBON DIOXIDE 24.2 mmol/L (21-32); POTASSIUM 4.2 mmol/L (3.5-5.1)
[2019-02-09 13:24] LABS: CREATININE 7.7 mg/dL (0.6-1.3)
[2019-02-09] MEDS: DRY DRESSING TP SCH (13:59)
--- NOTE | 2019-02-09 14:04 | NUR ---
WAS UNABLE TO SPEAK WITH DR. MORALES WAS ON THE UNIT I WAS IN ANOTHER PATIENTS ROOM. I PAGED DR. Miguel MORALES ABOUT POSSIBLY GETTING A PICC LINE ORDER FOR PICC LINE PLACEMENT. HAVING A SWALLOW EVALUATION DONE, RENEWAL OF MITTEN OR SOFT RESTRAINTS.
--- NOTE | 2019-02-09 14:50 | NUR ---
OBTAINED 2 NURSE VERIFICATION CONSENT FROM PT MARLEN CANDELARIA (POWER OF SHUTTLER CAR). FOR PICC LINE INSERTION. PT SON STATED THAT HE ALSO GIVES CONSENT FOR RESTRAINTS WELL
--- NOTE | 2019-02-09 14:54 | NUR ---
PICC line nurse notified of need for PICC line insertion.
--- NOTE | 2019-02-09 15:00 | NUR ---
PAGED NEPHROLOGY CONSULT TRACK MECHANIC TO HAVE APPROVAL FOR PICC LINE INSERTION.
--- NOTE | 2019-02-09 15:03 | NUR ---
SPOKE WITH JAG PICC LINE NURSE. HE REQUESTED WE CALL HIM ONCE WE GET THE CONSENT SIGNED BY THE AND CLEARANCE FROM THE EMBOSSING CLERK JAG PICC LINE NURSE NUMBER [phone]
[2019-02-09 16:45] VITALS: BP 133/58
--- NOTE | 2019-02-09 17:05 | NUR ---
HELD SENNA. WANT TO WAIT FOR SWALLOW EVAL TO BE PREFORMED BEFORE ADMINISTERING PO MEDICATIONS. PT HAD DIFFICULTY SWALLOWING WATER. AND WHEN LETTING PT SUCK ON POPSICLE PT STARTED TO CHOKE. PT HAS ALOC. AND NOT FULLY AWAKE
--- NOTE | 2019-02-09 19:33 | NUR ---
ENDORSED PT TO PM RN PT APPEARS STABLE AND IN NO APPARENT DISTRESS. GOT IV ACCESS WHILE WAITING TO HEAR FROM NEPHROLOGY ABOUT PICC LINE. FAMILY AT BEDSIDE. ALL SAFETY MEASURES ARE IN PLACE.
--- NOTE | 2019-02-09 19:34 | NUR ---
REPORT RECEIVED FROM AM NURSE AT BEDSIDE. PT IN STABLE CONDITION. AAOX0-1. INTRODUCED SELF TO PT AND FAMILY. BOARD UPDATED. FLACC 5. WILL CALL MD FOR IV PAIN MEDICATION. NO SOB. AFEBRILE. PT IS BEDBOUND. PATIENT IS ON BILATERAL WRIST RESTRAINTS TO DETER HER FROM PULLING ON HER IV. IV SITE L WRIST 24G RUNNING D5NS@40ML/HR PATENT AND INTACT. Addendum: 02/09/19 at 2323 by Doron Gaming RN SKIN WARM, DRY, AND NOT INTACT DUE TO SCABBING ON BILATERAL FEET. BED LOCKED IN LOW POSITION. CALL ALMANZAR WITHIN REACH. SAFETY PRECAUTION IN PLACE. ALL NEEDS MET AT THIS TIME.
--- NOTE | 2019-02-09 19:48 | NUR ---
RECEIVED PATIENT ON ROOM AIR, PULSE OX SAT 94%. SCHEDULED BREATHING TREATMENTS ADMINISTERED. TOLERATED TREATMENTS WELL WITHOUT ADVERSE SIDE EFFECTS. NO ACUTE DISTRESS NOTED. WILL CONTINUE TO MONITOR.
--- NOTE | 2019-02-09 20:39 | NUR ---
ZOSYN HUNG AND RUNNING. PT TOLERATING WELL. BS 143. NO INSULIN COVERAGE NEEDED. LACTULOSE AND ZOCOR NOT GIVEN DUE TO DIFFICULTY SWALLOWING.
--- NOTE | 2019-02-09 20:44 | NUR ---
CALLED MD REGARDING ORDERS. MD ORDERED BILATERAL WRIST RESTRAINTS. MORPHINE 2MG IVP Q6H PRN FOR SEVERE PAIN. ATIVAN 1MG IVP Q6H PRN FOR ANXIETY AND AGITATION. NOTIFIED MD OF PATIENT'S HIGH BLOOD PRESSURE. MD ORDERED LABETALOL 10MG IVP Q6H PRN FOR BP >160. TORB.
[2019-02-09] MEDS: SIMVASTATIN 10 MG TAB PO SCH (20:51)
[2019-02-09] MEDS: MORPHINE SULFATE 2 MG/ML SYR IVP PRN (21:05)
--- NOTE | 2019-02-09 21:05 | NUR ---
MORPHINE GIVEN FOR FLACC 5. PT TOLERATED WELL.
[2019-02-09] MEDS: LABETALOL 100 MG/20 ML VIAL IV PRN (22:21)
--- NOTE | 2019-02-09 22:21 | NUR ---
TRANDATE GIVEN FOR BP OF 186/52. PT TOLERATED WELL.
[2019-02-09] MEDS: LORazepam 2 MG/ML VIAL IM/IVP PRN (23:14)
--- NOTE | 2019-02-09 23:14 | NUR ---
ATIVAN GIVEN FOR AGITATION. PT TOLERATED WELL.
[2019-02-10] VITALS: BP 175/47
[2019-02-10] MEDS: ALBUTEROL 0.083% 2.5 MG/3 ML NEBU INH SCH ×4 (01:00→19:22)
[2019-02-10] MEDS: HYDRAGUARD CREAM TP SCH ×2 (01:08→12:48)
--- NOTE | 2019-02-10 02:55 | NUR ---
PT SLEEPING COMFORTABLY BUT AROUSABLE. NO S/S OF DISTRESS NOTED. WILL CONTINUE TO MONITOR.
[2019-02-10] MEDS: PIPERACILLIN/TAZOBACTAM 2.25 GM in DEXTROSE 5% 50 ML IV SCH ×3 (04:19→20:38)
[2019-02-10] MEDS: LORazepam 2 MG/ML VIAL IM/IVP PRN (04:19)
--- NOTE | 2019-02-10 04:19 | NUR ---
ATIVAN GIVEN IVP. ZOSYN HUNG AND RUNNING. PT TOLERATING WELL.
[2019-02-10] MEDS: BLOOD GLUCOSE MONITORING 1 DEV DEV FS SCH ×4 (06:05→20:38)
--- NOTE | 2019-02-10 06:05 | NUR ---
BS 138. NO INSULIN COVERAGE NEEDED.
--- NOTE | 2019-02-10 07:06 | NUR ---
RECEIVED BEDSIDE REPORT FROM ADJUSTER PIANO ACTION NURSE. PATIENT IS AWAKE, ALERT AND ORIENTEDXO. NO SIGNS OF DISTRESS ON RA. SKIN HAS WOUNDS, SEE WOUND ASSESSMENT. PATIENT IS INCONTINENT. AV SHUNT ON R ARM, NOT WORKING. SIGNS POSTED. IV ON R WRIST 24G. CLEAN, DRY AND INTACT. FALL RISK PROTOCOL IN PLACE. BED IN LOW POSITION. CALL LIGHT WITHIN REACH. WILL CONTINUE TO MONITOR
[2019-02-10] MEDS: BUDESONIDE 0.5 MG/2 ML NEBU INH SCH ×2 (07:09→19:22)
[2019-02-10 07:12] LABS: BASOPHILS # (AUTO) 0.1 K/uL (0.00-0.22); BASOPHILS % (AUTO) 0.6 % (0.0-2.0); EOSINOPHILS # (AUTO) 1.2 K/uL (0-0.4); EOSINOPHILS % (AUTO) 5.7 % (0.0-4.0); HEMATOCRIT 23.5 % (36-48); HEMOGLOBIN 7.7 g/dL (12.0-16.0); LYMPHOCYTES # (AUTO) 1.3 K/uL (2.5-16.5); LYMPHOCYTES % (AUTO) 6.1 % (20.5-51.1); MEAN CORPUSCULAR HEMOGLOBIN 32 pg (27-31); MEAN CORPUSCULAR HGB CONC 33 g/dL (33-37); MEAN CORPUSCULAR VOLUME 96.5 fL (80-94); MONOCYTES # (AUTO) 0.9 K/uL (0.8-1.0); MONOCYTES % (AUTO) 4.3 % (1.7-9.3); NEUTROPHILS # (AUTO) 17.2 K/uL (1.8-7.7); NEUTROPHILS % (AUTO) 83.3 % (42.2-75.2); PLATELET COUNT (AUTO) 348 K/uL (140-450); RED BLOOD CELL COUNT(AUTO) 2.43 MIL/uL (4.20-5.40); RED CELL DISTRIBUTION WIDTH 13.6 % (11.6-13.7); WHITE BLOOD COUNT (AUTO) 20.7 K/uL (4.8-10.8)
[2019-02-10 07:32] LABS: ALBUMIN 2.2 g/dL (3.4-5.0); ANION GAP 19.5 (8-16); CARBON DIOXIDE 25.9 mmol/L (21-32); MAGNESIUM 2.7 mg/dL (1.8-2.4); PHOSPHORUS 3.8 mg/dL (2.5-4.9); POTASSIUM 4.4 mmol/L (3.5-5.1); TOTAL BILIRUBIN 0.7 mg/dL (0.0-1.0)
[2019-02-10 07:54] LABS: CREATININE 8.6 mg/dL (0.6-1.3)
[2019-02-10 08:00] VITALS: BP 127/79
--- NOTE | 2019-02-10 08:24 | NUR ---
SPOKE TO SUNIL CANDELARIA AT [phone]. I WANTED TO CONFIRM THAT THE SON DID NOT WANT A CENTRAL LINE. BUN AND CREATNINE ARE TRENDING UP. THE SON IS AWARE AND SAID THAT THE PATIENT DID NOT WANT A CENTRAL LINE. HE SAID HE DOES NOT GIVE CONSENT AND UNDERSTANDS THE RISKS INCLUDING . HE IS AWARE THAT THE AV SHUNT IS NOT WORKING AND THAT DR CHINCHILLA RECOMMENDED A CENTRAL LINE. HE STILL REFUSED. HE SAID HE WILL BE HERE SOON
[2019-02-10] MEDS: SENNA 8.6 MG TAB PO SCH ×3 (09:00→17:00)
[2019-02-10] MEDS: LACTULOSE 20 GM/30 ML UDC PO SCH ×2 (09:00→20:31)
[2019-02-10] MEDS: HYDROcodone/APAP 10/325 MG 1 TAB TAB PO SCH (09:00)
[2019-02-10] MEDS: FENOFIBRATE 48 MG TAB PO SCH (09:00)
[2019-02-10] MEDS ORDERED: VANCOMYCIN 1,000 MG in DEXTROSE 5% 250 ML IV SCH (10:00)
--- NOTE | 2019-02-10 10:05 | NUR ---
SON IS HERE, HE IS CONSENTING TO CENTRAL LINE. HE SPOKE TO DR MORALES AND IS OK FOR CENTRAL LINE. PAGED DR PECK TO GET CENTRAL LINE ORDER.
--- NOTE | 2019-02-10 10:37 | NUR ---
DR PECK CALLED BACK. SHE SAID SHE DOES NOT WANT A CENTRAL LINE FOR DIALYSIS IT WOULD HAVE TO BE A TUNNELED DIALYSIS CATHETER. SHE WAS UNABLE TO GET A HOLD OF DR LLOYD OR DR HSU. I ASKED THE SURGERY TEAM TO HAVE DR HSU GIVE ME A CALL WHEN HE IS DONE W HIS PROCEDURE
--- NOTE | 2019-02-10 12:00 | NUR ---
PATIENT LAYING IN BED. NO SIGNS OF DISTRESS. WILL CONTINUE TO MONITOR THE PATIENT.
[2019-02-10] MEDS: DRY DRESSING TP SCH (12:48)
--- NOTE | 2019-02-10 13:04 | NUR ---
Pt lying in bed and moaning. Blood pressure recorded at 155/ 53. HR at 78. Morphine 2ml given via IVP at 1305. Will reassess in 30 minutes .
[2019-02-10] MEDS: MORPHINE SULFATE 2 MG/ML SYR IVP PRN ×2 (13:05→23:29)
--- NOTE | 2019-02-10 14:00 | NUR ---
PATIENT LAYING IN BED. NO SIGNS OF DISTRESS
--- NOTE | 2019-02-10 14:27 | NUR ---
*S.T. Bedside swallow eval completed* See report for details. Pt presents w/ severe oropharyngeal dysphagia characterized by dense R facial droop and weakness with labial spillage and R side pocketing, poor/disorganized bolus formation and A/P propulsion, delayed pharyngeal swallow initiation and diminished laryngeal elevation resulting in weak coughing, wet voice and increased SOB after swallows. Pt also does not consistently swallow w/ each bolus. Pt is deemed high aspiration risk. Recommend: 1) Strict NPO, with alternate non-oral means of nutrition, hydration and meds. 2) Reassess w/ P.O. trials by S.T. in 2 days (02/12/19). Results/recommendations d/w pt, who was not able to indicate understanding. No family/caregiver present at time of eval. Endorsed to MARYCARMEN Ramirez. Time [id number]
--- NOTE | 2019-02-10 14:30 | NUR ---
NANCY contacted patient's son, Andrez Méndez to inform him that patient will be transferred to [facility] [place]. Andrez stated that he has been in contact with [facility] [phone]. Andrez stated that he was amenable to patient's discharge plan. NANCY/SOPHIA will follow up as needed.
--- NOTE | 2019-02-10 14:54 | NUR ---
PT IS ACCEPTED TO [facility] UNDER THE CARE OF DR ANDREW CARNEY ROOM NUMBER 208 B THE # TO GIVE REPORT [phone] PARACHUTE MARKER TIME 1830 Addendum: 02/10/19 at 1520 by Joey Parekh SS NANCY Garcia at [facility] that patient is accepted at [facility] [phone]. Radha verbalized understanding. NANCY/SOPHIA will follow up as needed.
--- NOTE | 2019-02-10 15:15 | NUR ---
Pt is lying in bed. Responsive to tactile stimuli. Pt was moaning. Pain assessed at 11/20. Morphine 2mg given at 1313. Pain reassessed 30 mins later. Pt showed signs of moaning. Resting in bed comfortably.
[2019-02-10 16:00] VITALS: BP 173/48
--- NOTE | 2019-02-10 16:00 | NUR ---
PATIENT IN NO DISTRESS
--- NOTE | 2019-02-10 16:15 | NUR ---
[facility] [phone] SPOKE WITH KENNY AND CANCELLED THE TRANSPORT NOTIFIED JANIE AND DR ANDREW Rivera. DISCHARGE IS HELD
--- NOTE | 2019-02-10 18:29 | NUR ---
Pt is lying in bed. Pt moaning occasionally. Respositioned pt for comfort. Son at bed side. Call light within reach.
--- NOTE | 2019-02-10 18:39 | NUR ---
I CALLED DR HSU. TOLD HIM THAT PATIENTS FAMILY, SUNIL, IS REFUSING BLOOD TRANSFUSION AT THIS TIME. PATIENT ONLY HAS A 24G AND WE CANNOT GIVE BLOOD THROUGH 24G AND FAMILY DOES NOT WANT ANYMORE IV'S. ALSO TOLD DR HSU THAT SUNIL, THE SON, DOES NOT WANT THE DIALYSIS CATH ON THE GROIN AREA. HERNAN, CHARGE NURSE IS MY WITNESS.
[2019-02-10] MEDS: DEXT 5% /NACL 0.9% 1,000 ML IV SCH (18:40)
[2019-02-10] MEDS: LABETALOL 100 MG/20 ML VIAL IV PRN (18:55)
--- NOTE | 2019-02-10 19:05 | NUR ---
GAVE BEDSIDE REPORT TO SPORTS PHOTOGRAPHER NURSE. EXPLAINED THAT THE SON DID NOT CONSENT FOR BLOOD AT THIS TIME, HE SAID THAT IF THEY GET A LINE TOMORROW THEN HE CONSENTS TO PUT THE BLOOD IN THE LINE. I ALSO TOLD HER THAT THE SON REFUSED AN FEMORAL/GROIN CATHETERS FOR HD
--- NOTE | 2019-02-10 19:30 | NUR ---
ASSUMED CARE OF PATIENT, AWAKE, CONFUSED AND JUST MOANS OCCASIONALLY. RT AT BEDSIDE FOR BREATHING TREATMENT. CALL LIGHT WITHIN REACH. HEAD ELEVATED AT ALL TIME.
--- NOTE | 2019-02-10 20:00 | NUR ---
VITAL SIGNS STABLE. CARE BOARD UPDATED. CALL LIGHT WITHIN REACH. PLAN OF CARE DISCUSSED, NEEDS REINFORCEMENT.
[2019-02-10] MEDS: SIMVASTATIN 10 MG TAB PO SCH (20:31)
--- NOTE | 2019-02-10 20:40 | NUR ---
REPOSITIONED AND RELEASE RESTRAINTS FOR 15 MINS. CALL LIGHT WITHIN REACH.
[2019-02-10 23:40] VITALS: BP 131/54
--- NOTE | 2019-02-10 23:41 | NUR ---
REPOSITIONED TO LEFT SIDE LYING, PERICARE DONE. BM NOTED. RELEASE RESTRAINTS 15MINS. CALL LIGHT WITHIN REACH. VITAL SIGNS STABLE.
[2019-02-11] MEDS: HYDRAGUARD CREAM TP SCH ×2 (00:09→13:23)
--- NOTE | 2019-02-11 00:45 | NUR ---
REPOSITIONED. NO COMPLAINS. CALL LIGHT WITHIN REACH. VITAL SIGNS STABLE.
[2019-02-11] MEDS: LORazepam 2 MG/ML VIAL IM/IVP PRN (00:49)
[2019-02-11] MEDS: ALBUTEROL 0.083% 2.5 MG/3 ML NEBU INH SCH ×5 (00:51→20:00)
--- NOTE | 2019-02-11 02:44 | NUR ---
RELEASE RESTRAINTS 15 MINUTES, REPOSITIONED. CALL LIGHT WITHIN REACH.
[2019-02-11] MEDS: PIPERACILLIN/TAZOBACTAM 2.25 GM in DEXTROSE 5% 50 ML IV SCH ×3 (04:41→21:00)
--- NOTE | 2019-02-11 05:19 | NUR ---
RELEASE RESTRAINTS. PERICARE. REPOSITIONED BY TURRET LATHE SET UP OPERATOR. CALL LIGHT WITHIN REACH.
[2019-02-11] MEDS: BLOOD GLUCOSE MONITORING 1 DEV DEV FS SCH ×4 (05:45→21:00)
[2019-02-11 06:13] LABS: MAGNESIUM 2.8 mg/dL (1.8-2.4)
[2019-02-11 06:20] LABS: CARBON DIOXIDE 25.5 mmol/L (21-32); POTASSIUM 4.2 mmol/L (3.5-5.1)
[2019-02-11 06:23] LABS: CREATININE 9.5 mg/dL (0.6-1.3)
[2019-02-11 06:24] LABS: ANION GAP 17.7 (8-16)
[2019-02-11 06:36] LABS: BASOPHILS # (AUTO) 0.1 K/uL (0.00-0.22); BASOPHILS % (AUTO) 0.7 % (0.0-2.0); EOSINOPHILS % (AUTO) 5.7 % (0.0-4.0); HEMATOCRIT 22.7 % (36-48); HEMOGLOBIN 7.5 g/dL (12.0-16.0); LYMPHOCYTES # (AUTO) 1.1 K/uL (2.5-16.5); LYMPHOCYTES % (AUTO) 6.2 % (20.5-51.1); MEAN CORPUSCULAR HEMOGLOBIN 32 pg (27-31); MEAN CORPUSCULAR HGB CONC 33 g/dL (33-37); MEAN CORPUSCULAR VOLUME 96.5 fL (80-94); MONOCYTES # (AUTO) 0.8 K/uL (0.8-1.0); MONOCYTES % (AUTO) 4.2 % (1.7-9.3); NEUTROPHILS # (AUTO) 14.9 K/uL (1.8-7.7); NEUTROPHILS % (AUTO) 83.2 % (42.2-75.2); PLATELET COUNT (AUTO) 339 K/uL (140-450); RED BLOOD CELL COUNT(AUTO) 2.36 MIL/uL (4.20-5.40); RED CELL DISTRIBUTION WIDTH 13.9 % (11.6-13.7); WHITE BLOOD COUNT (AUTO) 17.9 K/uL (4.8-10.8)
[2019-02-11 06:37] LABS: PHOSPHORUS 3.9 mg/dL (2.5-4.9)
[2019-02-11] MEDS: BUDESONIDE 0.5 MG/2 ML NEBU INH SCH ×2 (06:53→19:32)
--- NOTE | 2019-02-11 07:14 | NUR ---
ENDORSED CARE AT BEDSIDE WITH SADIA RN, PATIENT IN STABLE CONDITION.
--- NOTE | 2019-02-11 07:15 | NUR ---
RECEIVED BEDSIDE REPORT FROM EYEGLASS FRAMES POLISHER NURSE. PATIENT SLEEPING. NO SIGNS OF DISTRESS ON RA. SKIN HAS WOUNDS ON BLE, RLE HAS CAST. BEDBOUND, FALL RISK PROTOCOL IN PLACE. L WRIST 24G INFUSING D5NS AT 30. CLEAN, DRY AND INTACT. PATIENT UNABLE TO MAKE NEEDS KNOWN. INCONTINENT. ON RESTRAINTS, ORDER IS UP TO DATE. PATIENT IS ALTERED AND ATTEMPTS TO REMOVE LINES. BED IN LOW POSITION. CALL LIGHT WITHIN REACH. WILL CONTINUE TO MONITOR
[2019-02-11 08:00] VITALS: BP 122/39
[2019-02-11] MEDS ORDERED: MIDAZOLAM 2 MG/2 ML VIAL ONE (08:22)
[2019-02-11] MEDS ORDERED: fentaNYL 0.05 MG/ML VIAL ONE (08:22)
[2019-02-11] MEDS: LACTULOSE 20 GM/30 ML UDC PO SCH ×2 (08:31→21:00)
--- NOTE | 2019-02-11 08:31 | NUR ---
PATIENT PICKED UP BY OR STAFF
[2019-02-11] MEDS: FENOFIBRATE 48 MG TAB PO SCH (08:32)
[2019-02-11] MEDS: SENNA 8.6 MG TAB PO SCH ×3 (08:32→16:31)
[2019-02-11] MEDS: HYDROcodone/APAP 10/325 MG 1 TAB TAB PO SCH (08:32)
[2019-02-11] MEDS: LIDOCAINE 1% 500 MG/50 ML VIAL ONE ×2 (08:35→12:00)
[2019-02-11] MEDS: BUPIVACAINE-MPF 0.25% 30 ML VIAL INJ ONE ×2 (08:36→12:00)
--- NOTE | 2019-02-11 10:00 | NUR ---
PATIENT STILL IN OR. SONSUNIL ASKED ME TO CALL WHEN SHE IS BACK
--- NOTE | 2019-02-11 11:21 | NUR ---
PATIENT STILL W OR
[2019-02-11] MEDS: NACL 0.9% 1,000 ML IV SCH ×2 (12:15→20:35)
[2019-02-11] MEDS ORDERED: BLOOD GLUCOSE MONITORING 1 DEV DEV FS SCH (12:19)
--- NOTE | 2019-02-11 13:05 | NUR ---
PATIENT BACK FROM OR IN STABLE CONDITION. VITALS WILL BE IN THE CHART. MARLEN BARBER IS AWARE PATIENT IS BACK FROM OR. AND I PAGED DR CHOUDHARY FOR DIALYSIS ORDER. IF DIALYSIS GETS DONE, PATIENT WILL BE ABLE TO TRANSFER TO [place]
[2019-02-11] MEDS: DRY DRESSING TP SCH (13:22)
[2019-02-11] MEDS: DEXT 5% /NACL 0.9% 1,000 ML IV SCH (14:23)
--- NOTE | 2019-02-11 15:03 | NUR ---
02/11/19 RD FOLLOW UP COMPLETED PLEASE REFER TO NUTRITION ASSESSMENT UNDER CARE ACTIVITY FOR ESTIMATED NUTRITIONAL NEEDS. 1. CONTINUE NPO MEDICALLY NECESSARY 2. WHEN/IF PATIENT IS MEDICALLY STABLE CONSIDER TUBE FEEDING WITH NEPRO 1.8 @ 45 ML/HR X 24 HR WITH FREE WATER FLUSH OF 120 ML Q6H 3. PENDING SECOND SWALLOW EVALUATION 4. RD TO FOLLOW-UP 2-3 DAYS, HIGH RISK LOU OJEDA RD
--- NOTE | 2019-02-11 15:49 | NUR ---
PT HAS A D/C ORDER AFTER DIALYSIS NOTIFIED JANIE ,SPOKE WITH IRENA AND PT CAN GO TO [facility] ROOM NUMBER [id number] # TO GIVE REPORT [phone] AND ARRANGED THE TRANSPORT WITH [facility] AND PLACE IT WILL CALL Addendum: 02/11/19 at 1613 by Becca Waite THE TRANSPORT IS [facility] NOT [facility]
--- NOTE | 2019-02-11 15:49 | NUR ---
PATIENT SLEEPING. NO SIGNS OF DISTRESS. WILL CONTINUE TO MONITOR
[2019-02-11 16:00] VITALS: BP 181/48
--- NOTE | 2019-02-11 16:13 | NUR ---
ARRANGE TRANSPORT WITH [facility] [phone] UNABLE TO DO WILL CALL , SCHEDULE THE CUSHION SPRING ASSEMBLER TIME AT 9PM REF # [id number] NOTIFIED JATINDER CONROY
--- NOTE | 2019-02-11 16:20 | NUR ---
RECEIVED A CALL FROM [facility], [place] STATED [facility] WILL PRODUCTION CONTROL PEGBOARD CLERK PT AT 9 PM . INSTRUCTED TO NOTIFY [facility] TO CALL THE UNIT BEFORE THEY COME TO PICK PT.
--- NOTE | 2019-02-11 17:20 | NUR ---
GAVE TELEPHONE REPORT TO TAVIA, NURSE FROM [place], CALLED HER AT [phone]. ANSWERED ALL HER QUESTIONS, GAVE CALL BACK NUMBER
--- NOTE | 2019-02-11 17:21 | NUR ---
PATIENT CURRENTLY GETTING DIALYSIS.
--- NOTE | 2019-02-11 18:32 | NUR ---
EDUCATED SON, SUNIL, ON DISEASE PROCESS, ABD S/SX, WHEN TO GO TO THE ER, PER SON PNA AND FLU VACCINE ARE UP TO DATE, IV WILL STAY ON FOR ZOSYN, PATIENT STILL ATTEMPTING TO REMOVE LINES, PATIENT CAN USE MITTENS AT TRANSFER. EDUCATED ON MEDS, MEDS ARE THE SAME DR MORALES SAID TO CONTINUE ALL CURRENT MEDS AND HE WILL UPDATE NEEDED AT [facility], PRINTED OUT CURRENT MEDS AND PLACED IT IN THE CHART FOR [facility]. SON SIGNED ALL PAPERWORK.
--- NOTE | 2019-02-11 19:05 | NUR ---
TOOK DISCHARGE PHOTOS. TOLD CLIENT SERVICES COORDINATOR NURSE TO CALL [facility] AND TELL THEM THE DIALYSIS OUTPUT, KEEP IV IN, PLACE MITTENS BEFORE DISCHARGE, PER SON PNA AND FLU VACCINES ARE UP TO DATE. GAVE BEDSIDE REPORT TO CLIENT SERVICES COORDINATOR NURSE. PATIENT ENDORSED IN STABLE CONDITION.
--- NOTE | 2019-02-11 19:10 | NUR ---
RECEIVED REPORT FORM FELIPE RN DAYSHIFT NURSE AT BEDSIDE FOR CONTINUITY OF CARE, PT IN BED AOX1 RECEIVING HD AT BEDSIDE. ALL FALLS PRECAUTIONS IN PLACE. PT HAS AN IV SITE ON LEFT WRIST 24 GUAGE INTACT AND ASYMPTOMATIC. HD NURSE AT BEDSIDE PT HAS NO S/S OF PAIN OR DISTRESS NOTED.
--- NOTE | 2019-02-11 19:45 | NUR ---
RECEIVED PATIENT ON ROOM AIR, PULSE OX 100%. PATIENT RECEIVING DIALYSIS. SCHEDULED BREATHING TREATMENTS ADMINISTERED. TOLERATED TREATMENTS WELL WITHOUT ADVERSE SIDE EFFECTS. NO ACUTE RESPIRATORY DISTRESS NOTED AT THIS TIME. WILL CONTINUE TO MONITOR.
--- NOTE | 2019-02-11 20:30 | NUR ---
PT COMPLETED HD SHE HAD 1 LITER OUT AND LAST V/S AT T 98.9 P 79 R 18 B/P 143/70 02 100% ON ROOM AIR. LAST FINGERSTICK IS 117.
--- NOTE | 2019-02-11 20:50 | NUR ---
[facility] TRANSPORT HERE. PT CLEANED AND DRESSED FOR TRANSPORT NO S/S OF PAIN OR DISTRESS IV SITE 24 GUAGE INTACT. PT TRANSPORTED WITH MITTS SO SHE WONT PULL IV SITE OUT. REPORT GIVEN TO ORLIN RAIN NURSE ASSIGNED TO PT.
--- NOTE | 2019-02-11 20:55 | NUR ---
PT GOING TO [facility] ROOM 208B.
[2019-02-11] MEDS: SIMVASTATIN 10 MG TAB PO SCH (21:00)
[2019-02-13] MEDS ORDERED: EPOETIN ALFA 10,000 UNITS/ML VIAL SUBQ SCH (09:00)
== END 2019-02-11 20:40 | DRG 871 ==
LOC: MED 00:15 → MTU 05:34
PROVIDERS: ADMIT Preventive Medicine Preventive Medicine/Occupational Environmental Medicine; ATTEND Preventive Medicine Preventive Medicine/Occupational Environmental Medicine
PROC: 5A1D70Z Performance of Urinary Filtration, Intermittent, Less than 6 Hours Per Day (ICD-10-PCS; 2019-02-05)
PROC: 5A1D70Z Performance of Urinary Filtration, Intermittent, Less than 6 Hours Per Day (ICD-10-PCS; 2019-02-07)
PROC: 05HY33Z Insertion of Infusion Device into Upper Vein, Percutaneous Approach (ICD-10-PCS; principal; 2019-02-10)
PROC: B54MZZA Ultrasonography of Right Upper Extremity Veins, Guidance (ICD-10-PCS; 2019-02-10)
PROC: 02HV33Z Insertion of Infusion Device into Superior Vena Cava, Percutaneous Approach (ICD-10-PCS; 2019-02-11)
PROC: B5181ZA Fluoroscopy of Superior Vena Cava using Low Osmolar Contrast, Guidance (ICD-10-PCS; 2019-02-11)
PROC: B548ZZA Ultrasonography of Superior Vena Cava, Guidance (ICD-10-PCS; 2019-02-11)
PROC: 5A1D70Z Performance of Urinary Filtration, Intermittent, Less than 6 Hours Per Day (ICD-10-PCS; 2019-02-11)
DX: A41.9 Sepsis, unspecified organism (principal); N18.6 End stage renal disease; G93.41 Metabolic encephalopathy; E43 Unspecified severe protein-calorie malnutrition; T82.898A Other specified complication of vascular prosthetic devices, implants and grafts, initial encounter; N17.9 Acute kidney failure, unspecified; Z68.41 Body mass index [BMI] 40.0-44.9, adult; N13.6 Pyonephrosis; I13.2 Hypertensive heart and chronic kidney disease with heart failure and with stage 5 chronic kidney disease, or end stage renal disease; E83.41 Hypermagnesemia; G40.909 Epilepsy, unspecified, not intractable, without status epilepticus; G89.4 Chronic pain syndrome; I25.10 Atherosclerotic heart disease of native coronary artery without angina pectoris; K59.00 Constipation, unspecified; L97.519 Non-pressure chronic ulcer of other part of right foot with unspecified severity; J44.9 Chronic obstructive pulmonary disease, unspecified; I50.9 Heart failure, unspecified; K80.20 Calculus of gallbladder without cholecystitis without obstruction; B96.4 Proteus (mirabilis) (morganii) as the cause of diseases classified elsewhere; E11.621 Type 2 diabetes mellitus with foot ulcer; Y83.8 Other surgical procedures as the cause of abnormal reaction of the patient, or of later complication, without mention of misadventure at the time of the procedure; E11.649 Type 2 diabetes mellitus with hypoglycemia without coma; E66.9 Obesity, unspecified; E78.5 Hyperlipidemia, unspecified; E11.22 Type 2 diabetes mellitus with diabetic chronic kidney disease; D64.9 Anemia, unspecified; W18.30XA Fall on same level, unspecified, initial encounter; E11.65 Type 2 diabetes mellitus with hyperglycemia; K43.9 Ventral hernia without obstruction or gangrene; Z99.2 Dependence on renal dialysis; Z83.3 Family history of diabetes mellitus; Y93.89 Activity, other specified; Y92.89 Other specified places as the place of occurrence of the external cause; Y99.8 Other external cause status; Z79.899 Other long term (current) drug therapy
CPT/HCPCS: 36415; 36600; 70450; 71045; 76700; 78445; 80048; 80053; 80202; 81001; 82140; 82803; 82948; 83690; 83735; 84100; 85025; 85651; 86140; 86886; 86900; 86901; 86920; 87040; 87081; 87086; 87186; 90935; 92610; 93005; 94640; 96374; 96375; 99285; A9510; J0696; J1644; J1815; J2001; J2060; J2250; J2270; J2543; J3010; J3370; J3490; J7030; J7042; J7060; J7613; J7626; Q0092